=== PATIENT | female | born 1995 | race Hispanic/Latino ===

== ENCOUNTER 2020-01-13 14:47 | Emergency (ER) | payer OTHER ==
[~2020-01-13] VITALS: Ht 157.5 cm; Wt 54.0 kg
--- NOTE | 2020-01-13 15:00 | NUR ---
MAT TEAM CALLED PER ER MD; AGAIN, PT DENIES SI/HI, PT DENIES HEARING VOICES OR VISUAL DISTURBANCES/HALLUCINATIONS
--- NOTE | 2020-01-13 15:15 | Emergency Department Note ---
History of Present Illnes History of Present Illness Chief Complaint: Psychiatric History of Present Illness This is a 24 year old female mother of 3, going through a divorce/separation c /o anxiety and depression. She is not actively suicidal or homicidal. . Historian: Patient, Family Member Arrival Mode: Car Onset (how long ago): month(s) Radiation: Reports non-radiation Severity: moderate Onset quality: gradual Duration (how long): month(s) Progression: worsening Relieving factors: none Exacerbating factors: none Associated symptoms: Reports denies other symptoms Treatments prior to arrival: none Past Medical/Family History Physician Review I have reviewed the patient's past medical and family history. Any updates have been documented here. Past Medical History Recent Fever: No Clinical Suspicion of Infectio: No New/Unexplained Change in Ment: No Past Medical History: None Past Surgical History: None Social History Physically hurt or threatened: No Review of Systems Review of Systems Constitutional: Reports no symptoms EENTM: Reports no symptoms Cardiovascular: Reports no symptoms Respiratory: Reports no symptoms Gastrointestinal: Reports no symptoms Genitourinary: Reports no symptoms Musculoskeletal: Reports no symptoms Integumentary: Reports other (itchy skin at times) Neurological: Reports no symptoms Psychological: Reports as per HPI, Reports anxiety, Reports depressed, Reports emotional problems Endocrine: Reports no symptoms Hematological/Lymphatic: Reports no symptoms Physical Exam Related Data Allergies: Coded Allergies: No Known Allergies (Unverified , 01/13/20) Triage Vital Signs Vital Signs Date Time Temp Pulse Resp B/P (MAP) Pulse Ox O2 Delivery O2 Flow Rate FiO2 01/13/20 14:50 99.3 82 16 133/88 100 Room Air Vital signs reviewed: Yes Physical Exam CONSTITUTIONAL Constitutional: Present well-developed, Present well-nourished HENT HENT: Present normocephalic, Present atraumatic, Present oropharynx clear/moist, Present nose normal HENT L/R: Present left ext ear normal, Present right ext ear normal EYES Eyes: Reports PERRL, Reports conjunctivae normal NECK Neck: Present ROM normal PULMONARY Pulmonary: Present effort normal, Present breath sounds normal CARDIOVASCULAR Cardiovascular: Present regular rhythm, Present heart sounds normal, Present capillary refill normal, Present normal rate GASTROINTESTINAL Abdominal: Present soft, Present nontender, Present bowel sounds normal GENITOURINARY Genitourinary: Present exam deferred SKIN Skin: Present warm, Present dry MUSCULOSKELETAL Musculoskeletal: Present ROM normal NEUROLOGICAL Neurological: Present alert, Present oriented x 3, Present no gross motor or sensory deficits PSYCHOLOGICAL Psychological: Present mood/affect normal, Present judgement normal Results Laboratory Lab results reviewed: Yes Laboratory comments WNL Assessment & Plan Medical Decision Making MDM depression, stress, anxiety Reassessment Reassessment time: 16:00 Reassessment declines Psy eval, declines hospitalization. Assessment & Plan Final Impression: (1) Anxiety associated with depression (2) Depression Depart Disposition: HOME, SELF-CARE Last Vital Signs Date Time Temp Pulse Resp B/P (MAP) Pulse Ox O2 Delivery O2 Flow Rate FiO2 01/13/20 14:50 99.3 82 16 133/88 100 Room Air Home Meds Active Scripts Diphenhydramine Hcl (BENADRYL) 25 Mg Capsule, 1 TAB PO Q6H PRN for itchy, #30 Prov:KAYLA GLORIA MD 01/13/20 Clonazepam (CLONAZEPAM) 0.5 Mg Tablet, 0.5 MG PO Q8H for anxiety, #14 TAB Prov:KAYLA GLORIA MD 01/13/20 Physician Attestation Provider Attestation Patient is not actively suicidal nor homocidal. She has 3 children to care for as well as a multimedia producer job. She will f/u with her psychiatrist of choice (David or Tracie). pt can be safely d/c KAYLA GLORIA MD Jan 13, 2020 15:15
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
--- NOTE | 2020-01-13 16:07 | NUR ---
BURAK GIBSON TAKE PT; NOW GIVEN INFORMATION TO CALL MEGHAN SIMMS AT [facility].
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
[2020-01-13] MEDS ORDERED: CLONAZEPAM0.5 MG PO (16:40)
[2020-01-13] MEDS ORDERED: BENADRYL25 M1 PO (16:40)
== END 2020-01-13 16:38 | disposition home or self-care (01) ==
LOC: FSED 15:00
DX: F41.9 Anxiety disorder, unspecified (principal); F32.9 Major depressive disorder, single episode, unspecified
CPT/HCPCS: 80053; 81003; 81025; 85025; 99283

== ENCOUNTER 2020-05-26 21:25 | Emergency (ER) | payer SELFPAY ==
[~2020-05-26] VITALS: Ht 157.5 cm; Wt 54.0 kg
[~2020-05-26 21:25] MED LIST: BENADRYL25 M1 PO; CLONAZEPAM0.5 MG PO
[2020-05-26 22:12] LABS: BASOPHILS # (AUTO) 0.1 (0.0-0.1); BASOPHILS % 0.4 % (0.0-1.0); EOSINOPHILS # (AUTO) 0.2 (0.0-0.4); EOSINOPHILS % 1.4 % (0.0-6.0); HEMATOCRIT 36.2 % (34.2-44.1); HEMOGLOBIN 11.7 g/dL (12.0-16.0); LYMPHOCYTES # (AUTO) 2.3 (1.0-3.2); LYMPHOCYTES % 17.1 % (18.0-39.1); MEAN CORPUSCULAR HEMOGLOBIN 29.8 pg (28-32); MEAN CORPUSCULAR HGB CONC 32.3 g/dL (31-35); MEAN CORPUSCULAR VOLUME 92.1 fL (81-99); MONOCYTES # (AUTO) 0.9 (0.2-0.8); MONOCYTES % 6.9 % (4.4-11.3); NEUTROPHILS # (AUTO) 9.8 (2.1-6.9); NEUTROPHILS % 73.7 % (38.7-80.0); PLATELET COUNT 341 x10e3/uL (140-360); RED BLOOD COUNT 3.93 x10e6/uL (3.6-5.1); RED CELL DISTRIBUTION WIDTH 12.9 % (11.7-14.4)
[2020-05-26 22:13] LABS: BACTERIA,URINE FEW /HPF; CLARITY,URINE SL CLOUDY (CLEAR); COLOR,URINE STRAW (YELLOW); EPITHELIAL CELLS,URINE FEW /LPF; KETONES,URINE NEGATIVE (NEGATIVE); LEUKOCYTE ESTERASE ,URINE MODERATE (NEGATIVE); NITRITE,URINE NEGATIVE (NEGATIVE); PREGNANCY TEST, URINE NEGATIVE (NEGATIVE); PROTEIN,URINE DIPSTICK NEGATIVE (NEGATIVE); URINE UROBILINOGEN 0.2 mg/dL (0.2 - 1); WBC,URINE (MAN) 21-50 /HPF (0-5)
[2020-05-26 22:17] LABS: ALANINE AMINOTRANSFERASE 12 IU/L (0-55); ALBUMIN 4.2 g/dL (3.5-5.0); ALBUMIN/GLOBULIN RATIO 1.2 (0.8-2.0); ALKALINE PHOSPHATASE 99 IU/L (40-150); ANION GAP 13.6 mmol/L (8-16); BLOOD UREA NITROGEN 7 mg/dL (7-26); BUN/CREATININE RATIO 10 (6-25); CALCIUM 9.1 mg/dL (8.4-10.2); CARBON DIOXIDE 26 mmol/L (22-29); CHLORIDE 105 mmol/L (98-107); CREATININE, SERUM 0.69 mg/dL (0.57-1.11); EST GLOMERULAR FILTRATION RATE > 60 ML/MIN (60-); GLUCOSE 109 mg/dL (74-118); POTASSIUM 3.6 mmol/L (3.5-5.1); SODIUM 141 mmol/L (136-145)
[2020-05-26] MEDS ORDERED: SODIUM CHLORIDE 0.9% 50ML 50 ML ONE (22:30)
[2020-05-26] MEDS ORDERED: IOPAMIDOL 370 MG/ML 200 ML INFUS..BTL INJ ONE (22:30)
[2020-05-26] MEDS ORDERED: KETOROLAC TROMETHAMINE 30 MG/ML VIAL IV STA (22:47)
[2020-05-26] MEDS ORDERED: KETOROLAC TROMETHAMINE 30 MG/ML VIAL ONE (22:57)
[2020-05-26] MEDS ORDERED: CEFTRIAXONE SOD 1 GM/NS 50 ML 50 ML IV ONE (23:15)
== END 2020-05-27 00:07 | disposition home or self-care (01) ==
LOC: ER 21:59
DX: N39.0 Urinary tract infection, site not specified (principal); M54.5 Low back pain; R10.31 Right lower quadrant pain; R19.7 Diarrhea, unspecified; D64.9 Anemia, unspecified
CPT/HCPCS: 36415; 74177; 80053; 81001; 81025; 85025; 99284; J0696; J1885; Q9967